=== PATIENT | female | born 1985 | race Caucasian/White ===

== ENCOUNTER 2016-11-28 21:14 | Outpatient (CLI) | payer BC, OTHER ==
[~2016-11-28] VITALS: Ht 149.9 cm; Wt 82.9 kg
[~2016-11-28 21:14] MED LIST: CEPH-443 PO; CETI10CA PO; CIPR500T4 PO; HC30CR25 TOP; IBUP-1542 PO; IBUP400T22 PO; PHEN-537 PO
[2016-11-28 21:28] VITALS: Ht 149.9 cm; Wt 82.9 kg
[2016-11-28 21:29] VITALS: BP 128/64; PULSE 86; RESP 18
[2016-11-28] MEDS ORDERED: PRENAT PO (21:31)
[2016-11-28] MEDS ORDERED: ONDANSETRON 4 MG INJ IV STA (22:39)
[2016-11-28] MEDS ORDERED: CITRIC ACID/SODIUM CITRATE 15 ML CUP PO ONE (23:00)
[2016-11-28] MEDS ORDERED: ACETAMINOPHEN 1000MG/100ML IV 100 ML IVPB ONE (23:00)
[2016-11-28] MEDS ORDERED: LACTATED RINGER'S 1,000 ML IV ONE (23:30)
--- NOTE | 2016-11-29 00:36 | QN ---
Documentation Comment Laborist ER panel pt 31 y.o. with an IUP at 27w 2d with c/o abdominal pain and vomiting. Pt apparently went to [employer] today and walked for hours, did not drink anything, ate a burrito and then strted to have severe abdominal pain and then vomited multiple times. She retched while here but only got up some bile. She says the pain is constant, 8/10, and seems to be all over. Pt is moving around the bed a lot. PMHx: none. PSHx: none. NKDA. BP 128/64 T=98.2 NST: baseline 145 with accels to 160 bpm. No decels. Very difficult to keep the patient on he monitor as she was moving do much. No UC's but pt does have some girth. A: IUP at 27w 2d Gastroenteritis. P: IV fluids. Zofran 4 mg IV x 1. IV Tylenol x 1. Pt soon thereafter declared she was ready for d/c. VONNIE THOMAS MD November 29, 2016 00:36
--- NOTE | 2016-11-29 00:52 | TRIAGE ---
OB Triage Datetime Report Generated by CPN: 11/29/2016 00:52 Datetime: 11/29/2016 00:02 Vaginal Exam Membrane Status: Intact Datetime: 11/28/2016 23:00 Stage of : OB Triage Labor Evaluation Frequency: 0 Monitor Mode: External Duration (sec)2399: 0 Pattern: Normal: <= 5 Contractions in 10 Minutes Resting Tone [place]: Relaxed Heart Rate FHR Baseline Rate: 150 Monitor Mode: External US Variability: Moderate 6-25 bpm Accelerations: 15X15 Decelerations: None Category: Category I Pain Assessment Pain Scale: 8 Pain Presence: Intermittent Pain Type: Ache Pain Location: Abdomen; Back Pain Goal: 5 Pain Relief Measures: Comfort Measures Datetime: 11/28/2016 22:00 Stage of : OB Triage Labor Evaluation Frequency: 0 Monitor Mode: External Duration (sec)2399: 0 Pattern: Normal: <= 5 Contractions in 10 Minutes Resting Tone [place]: Relaxed Contraction Comments: uterine irritiabilty noted- pt. vomiting. Heart Rate FHR Baseline Rate: 150 Monitor Mode: External US Variability: Moderate 6-25 bpm Accelerations: 10X10 Decelerations: None Category: Category I Datetime: 11/28/2016 21:46 Assessment Type: Triage Maternal Assessment Level of Consciousness: Fully Conscious DTR's/Clonus: DTRs 2+; No Clonus Headache: Denies Blurred Vision: No Respiratory Effort: Unlabored Nausea/Vomiting: Present RUQ Epigastric Pain: Denies Lower Extremities Edema: None Degree: None Upper Extremities Edema: None Degree: None Facial Edema: None Fall Risk Assessment History of Falling: (0) No Secondary Diagnosis: (0) No Ambulatory Aid: (0) Bedrest/Nurse Assist IV Therapy: (0) No Gait: (0) Normal/Bedrest/Immobile Mental Status: (0) Oriented to Own Ability Fall Score: 0 Fall Risk Score Definition: No Risk: No action required Datetime: 11/28/2016 21:25 Time of Arrival: 11/28/2016 21:14 EGA: 27.2 Arrived By: Wheelchair Arrived From: Home Chief Complaint: nausea, vomiting, back pain, abdominal pain Movement: Present Contractions: Denies/Absent Rupture of Membranes: Denies Vaginal Bleeding: None Vaginal Discharge: Denies Recent Sexual Intercouse: Denies Abdominal Trauma: Not Applicable Patient Complaints: Cramping; Back Pain; Nausea; Vomiting Time Provider Notified: 11/28/2016 21:40 Provider Notified: Kimberly Initial Plan: AMEE
== END 2016-11-29 | disposition home or self-care (01) ==
LOC: OBT 21:14 → L-D 21:15 → OBT 11-29
PROVIDERS: ATTEND Obstetrics & Gynecology
DX: O26.892 Other specified pregnancy related conditions, second trimester (principal); K52.9 Noninfective gastroenteritis and colitis, unspecified; Z3A.27 27 weeks gestation of pregnancy
CPT/HCPCS: J0131; J2405; J7120; Z7610; 36415; 96360; 96361; G0463

== ENCOUNTER 2018-03-05 20:05 | Emergency (ER) | END 2018-03-05 20:55 | disposition home or self-care (01) ==

== ENCOUNTER 2018-07-02 09:45 | Emergency (ER) | END 2018-07-02 11:39 | disposition home or self-care (01) ==

== ENCOUNTER 2019-01-09 13:38 | Emergency (ER) | payer OTHER ==
[~2019-01-09] VITALS: Ht 152.4 cm; Wt 82.3 kg
[~2019-01-09 13:38] MED LIST changes: +AMOX1TAB10 PO; -CEPH-443 PO; -CETI10CA PO; -CIPR500T4 PO; -HC30CR25 TOP; -IBUP-1542 PO; -IBUP400T22 PO; +NPH10OT RIGHT EAR; -PHEN-537 PO; +PRENAT PO
[2019-01-09 13:48] VITALS: BP 146/97; PULSE 86; RESP 18; Ht 152.4 cm; Wt 82.3 kg
[2019-01-09] MEDS ORDERED: CIPR7.5D RIGHT EAR (14:54)
[2019-01-09] MEDS ORDERED: IBUP-1542 PO (14:54)
--- NOTE | 2019-01-09 14:55 | ERD ---
ER Documentation Chief Complaint Chief Complaint runy nose , chest congestion , ear pain x 2 days HPI 33-year-old female presents to clinic complaining of ear pain x2 days, congestion, runny nose. She reports that she was congested for at least a week but her ear pain has been started about 2 days ago. She reports feeling warm and occasional chills. She denies any sick contacts or recent travel. She reports that her right ear has been hurting and she is having difficult time hearing out of it due to the fact that it feels very congested. She denies pain to the mastoid process and states that her left ear is mostly fine. She denies any recent swimming. She has taken DayQuil at home with very mild relief of her symptoms. She denies past medical history. ROS All systems reviewed and are negative except as per history of present illness. Medications Home Meds Active Scripts Ibuprofen* (Motrin*) 600 Mg Tab, 600 MG PO Q8, #30 TAB Prov:BLESSING LUNA PA-C 01/09/19 Ciprofloxacin Hcl/Dexameth (Ciprodex Otic Suspension) 7.5 Ml Drops.susp, 4 DROP RIGHT EAR BID for 7 Days, EA Prov:BLESSING LUNA PA-C 01/09/19 Neomycin/Polymyxin/Hydrocort* (Cortisporin* Otic) 10 Ml Susp, 4 DROP RIGHT EAR QID for 7 Days, EA Prov:MICHELLE MARTINEZ MD 07/02/18 Amoxicillin/Potassium Clav (Amox-Clav 875-125 mg Tablet) 875-125 mg Tab, 1 TAB PO BID for 10 Days, #20 TAB Prov:STEVE GALEAS PA-C 03/05/18 Neomycin/Polymyxin/Hydrocort* (Cortisporin* Otic) 10 Ml Susp, 4 DROP RIGHT EAR QID, #1 EA Prov:STEVE GALEAS PA-C 03/05/18 Reported Medications Multivit/Min/Fol Ac/Iron/Pren* ( S*) 1 Tab Tab, 1 TAB PO DAILY, TAB 11/28/16 Allergies Allergies: Coded Allergies: No Known Allergy (Verified , 01/09/19) PMhx/Soc Medical and Surgical Hx: pt denies Medical Hx, pt denies Surgical Hx History of Surgery: No Anesthesia Reaction: No Hx Neurological Disorder: No Hx Respiratory Disorders: No Hx Cardiac Disorders: No Hx Psychiatric Problems: No Hx Miscellaneous Medical Probl: No Hx Alcohol Use: No Hx Substance Use: No Hx Tobacco Use: No Smoking Status: Never smoker FmHx Family History: No diabetes Physical Exam Vitals Vital Signs Date Temp Pulse Resp B/P (MAP) Pulse Ox O2 O2 Flow FiO2 Time Delivery Rate 01/09/19 100.1 86 18 146/97 98 13:48 (113) Physical Exam Const: No acute distress Head: Atraumatic Eyes: Normal Conjunctiva ENT: Nose: midline Mouth: [place] and moist without exudates. Nonerythematous, noninflammed Right ear: Significant white purulent d/c blocking ear canal. Significantly reduced hearing in right ear Neck: Full range of motion. Resp: Clear to auscultation bilaterally Cardio: Regular rate and rhythm, Abd: Soft, non tender, non distended. Skin: No petechiae or rashes Back: No midline or flank tenderness Ext: No cyanosis, or edema Neur: Awake and alert Psych: Normal Mood and Affect Procedures/MDM ED COURSE: The patient was stable throughout ED course. I kept the patient informed of laboratory and diagnostic imaging results throughout the ED course. MEDICATIONS GIVEN: [None.] MEDICAL DECISION MAKING: Patient is a 33-year-old female presenting with congestion and ear pain. She reports that her right ear has loss of hearing and feels very congested. On physical exam I looked inside the right ear and saw significant purulent discharge in the entire ear canal. Patient had slight pain on the outside of the ear but no pain on the mastoid process. H&P and other data not c/w emergent process (eg. CARINE, meningitis, mastoiditis). Her Vital signs were reviewed. Patient is afebrile. Patient was not hypoxic. Patient was hemodynamically stable. She was sent home with Ciprodex eardrops with proper instructions to use. PRESCRIPTION: Ciprodex, Motrin DISCHARGE: At this time, patient is stable for discharge and outpatient management. I have instructed the patient to follow-up with his/her primary care physician in 1-2 days. I have discussed with the patient the possibility of needing to see a specialist for further workup and imaging studies if symptoms persist. I have instructed the patient to promptly return to the ER for any new or worsening symptoms including increased pain, fever, nausea, vomiting, weakness or LOC. The patient and/or family expressed understanding of and agreement with this plan. All questions were answered. Home care instructions were provided. Disclaimer: Inadvertent spelling and grammatical errors are likely due to EHR/dictation software use and do not reflect on the overall quality of patient care. Also, please note that the electronic time recorded on this note does not necessarily reflect the actual time of the patient encounter. Departure Diagnosis: Primary Impression: Otitis externa Otitis externa type: unspecified type Chronicity: acute Laterality: right Qualified Codes: H60.501 - Unspecified acute noninfective otitis externa, right ear Condition: Fair Patient Instructions: External Ear Infection (Adult) Referrals: [facility] YOU HAVE RECEIVED A MEDICAL SCREENING EXAM AND THE RESULTS INDICATE THAT YOU DO NOT HAVE A CONDITION THAT REQUIRES URGENT TREATMENT IN THE EMERGENCY DEPARTMENT. FURTHER EVALUATION AND TREATMENT OF YOUR CONDITION CAN WAIT UNTIL YOU ARE SEEN IN YOUR DOCTORS OFFICE WITHIN THE NEXT 1-2 DAYS. IT IS YOUR RESPONSIBILITY TO MAKE AN APPOINTMENT FOR FOLOW-UP CARE. IF YOU HAVE A PRIMARY DOCTOR --you should call your primary doctor and schedule an appointment IF YOU DO NOT HAVE A PRIMARY DOCTOR YOU CAN CALL OUR PHYSICIAN REFERRAL HOTLINE AT IF YOU CAN NOT AFFORD TO SEE A PHYSICIAN YOU CAN CHOSE FROM THE FOLLOWING [facility] [address] [facility]. [facility] [address] [facility]. [facility] [address] [facility] [facility] [address] [facility] [facility] [address] [facility]. [facility]. [address] [facility]. [facility] YOU HAVE RECEIVED A MEDICAL SCREENING EXAM AND THE RESULTS INDICATE THAT YOU DO NOT HAVE A CONDITION THAT REQUIRES URGENT TREATMENT IN THE EMERGENCY DEPARTMENT. FURTHER EVALUATION AND TREATMENT OF YOUR CONDITION CAN WAIT UNTIL YOU ARE SEEN IN YOUR DOCTORS OFFICE WITHIN THE NEXT 1-2 DAYS. IT IS YOUR RESPONSIBILITY TO MAKE AN APPOINTMENT FOR FOLOW-UP CARE. IF YOU HAVE A PRIMARY DOCTOR --you should call your primary doctor and schedule and appointment IF YOU DO NOT HAVE A PRIMARY DOCTOR YOU CAN CALL OUR PHYSICIAN REFERRAL HOTLINE AT . IF YOU CAN NOT AFFORD TO SEE A PHYSICIAN YOU CAN CHOSE FROM THE FOLLOWING [facility] INSTITUTIONS: [facility] [address] [place] [address] [facility] [address] [place] [address] [facility] + [facility] [address] [place] [address] Additional Instructions: Call your primary care doctor TOMORROW for an appointment during the next 1-2 days.See the doctor sooner or return here if your condition worsens before your appointment time. BLESSING LUNA PA-C Jan 09, 2019 14:55
== END 2019-01-09 15:02 | disposition home or self-care (01) ==
LOC: FTE 13:38
DX: H60.501 Unspecified acute noninfective otitis externa, right ear (principal)
CPT/HCPCS: 99283